=== PATIENT | male | born 1960 | race Caucasian/White ===

== ENCOUNTER 2024-12-03 12:17 | Outpatient (CLI) | payer OTHER, SELFPAY ==
--- OUTSIDE RECORDS SUMMARY | 2024-12-03 11:45 | XMS_ITS | Encounter Summary ---
Author Organization [facility] Address [address] [place] [address] Care Team Providers Care Plug Machine Operator Name Role Phone Bina Gillette Primary Care Provider + Reason for Visit * Reason Comments New Patient Hyperlipidemia * Consultation (Routine) - Closed Specialty Diagnoses / Procedures Referred By Contac t Referred To Contact Cardiology Diagnoses Pure hypercholesterolemia Bina Gillette PA [address] [facility] [address] [place] [address] Phone: tel: fax: Sanjeev Zelaya MD [address] [place] [address] Phone: tel: fax: Referral ID Status Reason Start Date Expiration Date V isits Requested Visits Authorized [id number] Closed Specialty Services Required 04/08/2024 05/08/2025 1 1 Encounter Details Date Type Department Care Team (Latest Contact Info) Description 12/03/2024 11:45 AM CDT Office Visit [facility] Cardiology [address] [place] [address] Sanjeev Zelaya MD [address] [facility] [address] [facility] [address] [place] [address] Coronary artery calcification (Primary Dx); Primary hypertension; Mixed dyslipidemia; Myalgia due to statin Social History Tobacco Use Types Packs/Day Years Used Date Smoking Tobacco: Never Smokeless Tobacco: Never Alcohol Use Standard Drinks/Week Comments Yes 1 (1 standard drink = 0.6 oz pur e alcohol) PHQ-2 Answer Date Recorded PHQ-2 Total Score (If total score is 3 or more points, staff should administer the PHQ-9) 0 10/17/2024 PHQ-9 Answer Date Recorded PHQ-9 Total Score 1 10/07/2024 AUDIT-C Answer Date Recorded Q1: How often do you have a drink containing alc ohol? 2-4 times a month 10/17/2024 Q2: How many drinks containi ng alcohol do you have on a typical day when you are drinking? 1 or 2 10/17/2024 Q3: How often do you have si x or more drinks on one occasion? 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 Not on file Not on file documented as of this encounter Last Filed Vital Signs Vital Sign Reading Time Taken Comments Blood Pressure 132/84 12/03/2024 11:29 AM CDT Pulse 96 12/03/2024 11:29 AM CDT Temperature - - Respiratory Rate - - Oxygen Saturation 97% 12/03/2024 11:29 AM CDT Inhaled Oxygen Concentration - - Weight 83.5 kg (184 lb) 12/03/2024 11:29 AM CDT Height 175 cm (5' 8.9) 12/03/2024 11:29 AM CDT Body Mass Index 27.25 12/03/2024 11:29 AM CDT documented in this encounter Ordered Prescriptions Prescription Sig Dispense Quantity Refills Last Filled Start Date End Date rosuvastatin (CRESTOR) 10 mg tablet Take 1 tablet (10 mg total) by mouth nightly 90 tablet 6 12/03/2024 documented in this encounter Plan of Treatment Scheduled Orders Name Type Priority Associated Diagnoses Orde r Schedule Lipoprotein a (LPa) Lab Routine Coronary artery calcification Expected: 12/06/2024, Expires: 12/03/2025 CRP (cardiac risk) Lab Routine Coronary artery calcification Expected: 12/06/2024, Expires: 12/03/2025 Electrocardiogram Report ECG Routine Coronary artery calcification Ordered: 12/03/2024 documented as of this encounter Visit Diagnoses Diagnosis Coronary artery calcification- Primary Primary hypertension Unspecified essential hypertension Mixed dyslipidemia Myalgia due to statin documented in this encounter Orders Outpatient Referral Count Last Ordered Date Fir st Ordered Date AMB REFERRAL TO CARDIOLOGY 1 12/03/2024 documented in this encounter Care Teams Plug Machine Operator Relationship Specialty Start Date End Date Bina Gillette PA [address] [address] PCP - General Family Medicine 04/08/24 documented as of this encounter
--- OUTSIDE RECORDS SUMMARY | 2024-12-03 12:26 | XMS_ITS | Clinical Summary ---
Author Organization [facility] [place] Address [address] [place] [address] Care Team Providers Care Dispensary Technician Name Role Phone Bina Gillette Primary Care Provider + Allergies Active Allergy Reactions Criticality Noted Date Comments Amoxicillin Rash Medium 03/06/2018 Atorvastatin Muscle pain Medium 05/12/2024 Medications lansoprazole (PREVACID) 30 mg capsule Take 1 capsule (30 mg total) by mouth daily 06/29/2015 Active losartan-hydroc hlorothiazide (HYZAAR) 100-25 mg per tablet Take 1 tablet by mouth daily 06/07/2020 Active multivitamin with minerals tablet Take 1 tablet by mouth daily Active rosuvastatin (CRESTOR) 10 mg tablet Take 1 tablet (10 mg total) by mouth nightly 90 tablet 6 12/03/2024 Active Active Problems Problem Noted Date Diagnosed Date Pure hypercholesterolemia 01/17/2024 Assessment & Plan (10/07/2024 8:08 AM CDT): Hypercholesterolemia with borderline cholesterol levels. ASCVD risk approx 7% over ten years. Previous statin therapy caused significant side effects. Statin therapy deferred until cardiology consultation due to side effects and borderline risk. - Defer statin therapy until cardiology consultation. - Await cardiology input on cholesterol management and potential statin alternatives. - Undergo a heart CT scan to assess cardiovascular risk - scheduled at [facility]. Pt will message me once completed for review Lumbar facet arthropathy 05/15/2023 Esophageal stricture 03/09/2023 Ulcerative esophagitis 03/09/2023 Chronic bilateral low back pain without sciatica 03/08/2023 Assessment & Plan (10/07/2024 8:08 AM CDT): Chronic, improved following RFA by pain management Considering PRP injections for hip pain Right carpal tunnel syndrome 08/28/2018 Psoriasis 02/27/2017 Overview (04/08/2024): Transitioned From: Rash Herniated lumbar intervertebral disc 07/26/2015 Carpal tunnel syndrome 08/12/2014 Esophageal reflux 11/23/2011 Assessment & Plan (10/17/2024 7:34 AM CDT): Chronic, exacerbated Chronic GERD managed with Prevacid. - Continue current Prevacid regimen. Assessment & Plan (10/07/2024 8:08 AM CDT): Chronic, stable condition. Continue current medication regimen: Prevacid Primary hypertension 11/23/2011 Assessment & Plan (10/07/2024 8:08 AM CDT): Chronic, stable condition. Continue current medication regimen: Losartan-HCTZ Assessment & Plan (04/08/2024 8:29 AM DIRECTOR CONTENT MARKETING): Chronic, stable condition. Continue current medication regimen: losartan-HCTZ Encounters Date Type Department Care Team Description 12/03/2024 11:45 AM CDT Office Visit [facility] Cardiology [address] [facility] [address] [place] [address] Sanjeev Zelaya MD Coronary artery calcification (Primary Dx); Primary hypertension; Mixed dyslipidemia; Myalgia due to statin 10/17/2024 7:00 AM CDT Office Visit [facility] Medical [facility] Family Medicine [address] [address] Mari Rosa NP Abdominal pain (Primary Dx); Gastroesophageal reflux disease without esophagitis 10/16/2024 Patient Self-Triage [facility] [address] [place] [id number] Mychart, Generic Provider 10/07/2024 7:30 AM CDT Office Visit [facility] Family Medicine [address] [address] Bina Gillette PA Physical exam, annual (Primary Dx); Pure hypercholesterolemia; Primary hypertension; Gastroesophageal reflux disease without esophagitis; Chronic bilateral low back pain without sciatica from Last 3 Months Immunizations Immunization Administration Dates Next Due Influenza, Quadrivalent, Krystina l Culture-based MDCK, Antibiotic Free, Intramuscular 02/04/2022 Influenza, Quadrivalent, Krystina l Culture-based MDCK, Preservative Free, Antibiotic Free, Intramuscular 01/09/2023 Influenza, Quadrivalent, Spl it, Preservative Free, Intramuscular 12/28/2020,12/16/2019,03/18/2019,12/11,02/27/2017,11/17/2014 Influenza, Trivalent, Cell Culture-based MDCK, Preservative Free, Antibiotic Free, Intramuscular 01/04/2024 Influenza, Unspecified 01/09/2023,02/04/2022 Tdap 01/19/2024,02/27/2017 ZOSTER Recombinant 06/27/2023,03/15/2023 Surgical History Surgery Date Site/Laterality Comments BACK SURGERY 03/05/2016 - 03/04/2017 lumbar surgery no hardware present KNEE SURGERY Bilateral menicus SA surgery early FOOT FRACTURE SURGERY 03/05/2004 - 03/04/2005 Right small screw present foot SINUS SURGERY 03/05/2004 - 03/04/2005 septoplasty COLONOSCOPY 03/05/2017 - 03/04/2018 normal HAND SURGERY 08/04/[address] (LOCAL) HERNIA REPAIR 1982 SPINE SURGERY 2016 Medical History Medical History Date Comments Gastric reflux Hypertension History of ear, nose, and th roat (ENT) surgery PONV (postoperative nausea and vomiting) Allergic rhinitis not on any med ications GERD (gastroesophageal reflux disease) controlled with medication Carpal tunnel syndrome LEFT Psoriasis SEE MED LIST PRN OINTMENT AND CREAMS Tooth missing #14 STATES PATIE NT Hyperlipidemia Family History Medical History Relation Name Comments Heart disease Father Jason Stroke Father Jason Heart disease Mother Fiona Relation Name Status Comments Father Jason Alive Mother Fiona Social History Tobacco Use Types Packs/Day Years [...] on file Legal Sex Male 9:03 PM DIRECTOR CONTENT MARKETING Gender Identity Male 08/12/2020 9:03 AM CDT Sexual Orientation Straight 08/12/2020 9: 03 AM CDT 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 Not on file Not on file Obstetrics History Last Filed Vital Signs Vital Sign Reading Time Taken Comments Blood Pressure 132/84 12/03/2024 11:29 AM CDT Pulse 96 12/03/2024 11:29 AM CDT Temperature 36.3 C (97.3 F) 10/17/2024 6:50 AM CDT Respiratory Rate 18 10/17/2024 6:50 AM CDT Oxygen Saturation 97% 12/03/2024 11:29 AM CDT Inhaled Oxygen Concentration - - Weight 83.5 kg (184 lb) 12/03/2024 11:29 AM CDT Height 175 cm (5' 8.9) 12/03/2024 11:29 AM CDT Body Mass Index 27.25 12/03/2024 11:29 AM CDT Plan of Treatment Health Maintenance Due Date Last Done Comments Hepatitis C Screening 1962 Hepatitis B Screening 1980 Covid-19 Vaccine ( season) 2024 11/16/2021, 02/02/2021, 06/29/2020, Additional history exists Influenza Vaccine (#1) 2024 , 01/09/2023, 01/09/2023, Additional history exists Regular Well Visit/Exam 18-64 10/07/2025 10/07/2024 Depression Screening 10/17/2025 10/17/2024, 10/07/2024, 10/07/2024, Additional history exists Prostate Cancer Screening-PSA 04/14/2026 04/14/2024 Colon Cancer Screening-Colonoscopy 05/18/2027 05/17/2017 DTaP/Tdap/Td Vaccine (3 - Td or Tdap) 01/18/2034 01/19/2024, 02/27/2017 Colon Cancer Screening-CT Colonography Discontinued 05/17/2017 Colon Cancer Screening-DNA Stool Discontinued 05/17/2017 Colon Cancer Screening-FIT Discontinued 05/17/2017 Colon Cancer Screening-Sigmoidoscopy Discontinued 05/17/2017 Zoster Vaccine Completed 06/27/2023, 03/15/2023 Pneumococcal vaccine <65 Aged Out No longer eligible based on patient's age to complete this topic Medical Devices Implanted Type Area Manager Of Transportation Device Identifier Shelf Expiration Date Model / Serial / Lot Screw Implanted:Qty: 2 Screw Right: Foot Procedures Procedure Name Priority Date/Time Associated Diagnosis Comments POCT URINALYSIS DIPSTICK Routine 10/17/2024 7:14 AM CDT Abdominal pain PSA SCREEN Routine 04/14/2024 7:20 AM DIRECTOR CONTENT MARKETING Screening PSA (prostate specific antigen) HM COLONOSCOPY Routine 05/17/2017 from Last 3 Months or Most Recently Relevant to Health Maintenance Results * POCT urinalysis dipstick (10/17/2024 7:14 AM CDT) Color, Urine, POC Yellow Clarity, ur, POC Clear Clear Glucose, ur, POC Negative Negative Bilirubin, ur, POC Negative Negative Ketones, ur, POC Negative Negative Specific [place], POC 1.015 1.003 - 1.030 Blood, ur, POC Negative Negative pH, ur, POC 6.5 5.0 - 8.0 Protein, ur, POC Negative Negative Urobilinogen, urine, POC 0.2 0.2 - 1.0 mg/dL Nitrite, ur, POC Negative Negative Leukocytes, ur, POC Negative Negative Lot Number [id number] Urine 10/17/2024 7:14 AM CDT Mari Rosa NP POINT OF CARE TEST ORDERABLE S Final Result * PSA screen (04/14/2024 7:20 AM DIRECTOR CONTENT MARKETING) PSA 1.19 < OR = 4.00 ng/mL [facility] Comment: The total PSA value from this assay system is standardized against the WHO standard. The test result will be approximately 20% lower when compared to the equimolar-standardized total PSA (Jabier Masha). Comparison of serial PSA results should be interpreted with this fact in mind. This test was performed using the Siemens chemiluminescent method. Values obtained from different assay methods cannot be used interchangeably. PSA levels, regardless of value, should not be interpreted as absolute evidence of the presence or absence of disease. Blood 04/14/2024 7:20 AM DIRECTOR CONTENT MARKETING 04/14/2024 7:21 AM DIRECTOR CONTENT MARKETING Narrative [facility] - 04/15/2024 6:40 AM DIRECTOR CONTENT MARKETING FASTING:YES FASTING: YES [facility] BLOOD ORDERABLES Fin al Result [facility] [address] [place] [address] * COLONOSCOPY (05/17/2017) Historical Provider HEALTH MAINTENANCE Final Result from Last 3 Months or Most Recently Relevant to Health Maintenance Insurance [facility] H[facility]/PPO Address: [address] [address] [place] [address] Advance Directives For more information, please contact: [phone] Documents on File Type Date Recorded Patient Asphalt Paving Superintendent Expl anation ADVANCE DIRECTIVE 06/29/2015 12:00 AM MIRTA R OF CURRICULUM COORDINATOR FINANCIAL/MEDICAL Care Teams Dispensary Technician Relationship Specialty Start Date End Date Bina Gillette PA [address] [place] [address] PCP - General Family Medicine 04/08/24
--- OUTSIDE RECORDS SUMMARY | 2024-12-03 12:26 | XMS_ITS | Encounter Summary ---
Author Organization [facility] Address [facility] [place] [address] Care Team Providers Care Field Artillery Fire Control Man Name Role Phone Lyao Bain MD Primary Care Provider [phone] Rubi Gilbert MD Primary Care Provider [phone] Encounter Details Date Type Department Care Team (Late st Contact Info) Description 03/20/2019 Hitwise Message Enc [facility] Family Medicine [facility] [address] [place] [phone] Layo Bain MD [address] [place] [address] Test Results Social History Tobacco Use Types Packs/Day Years Used Date Smoking Tobacco: Never Smokeless Tobacco: Never Alcohol Use Standard Drinks/Week Comments Yes 0 (1 standard drink = 0.6 oz pur e alcohol) AUDIT-C Answer Date Recorded Frequency of Alcohol Consumption Monthly or less 03/06/2018 Average Number of Drinks Not on file 019 Frequency of Binge Drinking Not on file 04/2018 Education Answer Date Recorded What is the highest level of school you have completed or the highest degree you have received? Associate degree: academic program 03/06/2018 Sex and Gender Information Value Date Recorded Sex Assigned at Not on file Legal Sex Male 9:56 PM CDT Gender Identity Not on file Sexual Orientation Not on file documented as of this encounter Progress Notes * Layo Bain MD - 03/20/2019 10:09 PM CST The hydrochlorothiazide was not prescribed to decrease your sodium. It will have a minimal impact on the serum levels of sodium. I prescribed it to reduce your blood pressure because your blood pressure was borderline high. This should bring your blood pressure into more normal/healthy range. Although the medication works by modifying sodium concentration in the kidneys it does not impact the levels in the blood all that much. As for the anion gap, this is a very unimportant and inconsequentiallab test for our purposes here. It is mainly used intensive care settings when a person is very sick or when they are on a ventilator. CTOR OF SALES AND MARKETING documented in this encounter Plan of Treatment Not on file documented as of this encounter Visit Diagnoses Not on filedocumented in this encounter Additional Health Concerns Infection Onset Date Last Indicated Resolved Time COVID-19 Rule Out 08/30/2021 08/30/2021 08/31/2021 2:39 PM CDT COVID-19 Confirmed 08/30/2021 08/30/2021 12:32 AM CDT documented as of this encounter Care Teams Field Artillery Fire Control Man Relationship Specialty Start Date End Date Layo Bain MD PCP - General 12/19/13 12/17/23 Rubi Gilbert MD [address] [place] [address] PCP - General FAMILY PRACTICE 01/03/24 documented as of this encounter
--- OUTSIDE RECORDS SUMMARY | 2024-12-03 12:26 | XMS_ITS | Clinical Summary ---
Author Organization [facility] Address [facility] [place] [address] Care Team Providers Care Merchant Banker Name Role Phone Rubi Gilbert MD Primary Care Provider Allergies Active Allergy Reactions Criticality Noted Date Comments Amoxicillin Rash Low 03/06/2018 Medications clobetasol (TEMOVATE) 0.05 % ointment APPLY TO THE TRUNK/EXTEN GRISELDA 2 TIMES A DAY FOR 7 TO 14 DAYS, THEN USE NEEDED 03/22/19 24 Active tacrolimus (PROTOPIC) 0.1 % ointment APPLY TO TRUNK/EXTEN GRISELDA 2 TIMES A DAY NEEDED 03/22/19 24 Active celecoxib (CELEBREX) 200 MG capsuleIndications:Chron ic bilateral low back pain without sciatica Take 1 capsule (200 mg total) by mouth 2 (two) times daily. 180 capsule 1 01/03/20 24 Active atorvastatin (LIPITOR) 20 MG tabletIndications:Pure hypercholesterolemia Take 1 tablet (20 mg total) by mouth nightly at bedtime. 90 tablet 1 01/17/20 24 Active Active Problems Problem Noted Date Diagnosed Date Stage 2 chronic kidney disease 01/17/2024 Pure hypercholesterolemia 01/17/2024 Lumbar facet arthropathy 05/15/2023 SI joint arthritis 04/04/2023 Esophageal stricture 03/09/2023 Ulcerative esophagitis 03/09/2023 Chronic bilateral low back pain without sciatica 03/08/2023 Psoriasis 02/27/2017 Overview (03/06/2018): Transitioned From: Rash Esophageal reflux 11/23/2011 Primary hypertension 11/23/2011 Resolved Problems Problem Noted Date Diagnosed Date Resolved Date External thrombosed hemorrhoids 12/13/2017 04/23/2023 Right carpal tunnel syndrome 08/12/2014 04/23/2023 Encounter for preventive health examination 11/23/2011 11/14/2019 Encounters Date Type Department Care Team Description 10/16/2024 12:11 PM CDT - 10/16/2024 11:59 PM CDT Hospital Encounter [facility] [address] [place] [address] Oc Walton MD Discharge Disposition: Home or Self Care (Routine Discharge) 10/16/2024 Travel from Last 3 Months Immunizations Immunization Administration Dates Next Due FLUCELVAX (ccIIV3, TRIVALENT, 0.5mL) 01/04/2024 Fluzone 6 Months+ Quad (0.5 mL Prefilled Syringe) 12/28/2020,12/16/2019,03/18/2019 Influenza Adult (Generic) 01/09/2023,05/2021,12/11/2017,2016,11/17/2014 MODERNA COVID-19 (12+) MRNA, LNP-S, PF, 100 MCG/ 0.5 ML DOSE 06/29/2020,06/01/2020 MODERNA COVID-19 (MEDICAL LAB TECHNICIAN ANTHONY DAVID), MRNA, LNP-S, PF, 50 MCG/ 0.25 ML DOSE 02/02/2021 Shingrix 06/27/2023,03/15/2023 Tdap (Boostrix) 01/19/2024 Tdap (Generic) 02/27/2017 Family History Medical History Relation Comments Heart Disease Mother Relation Status Comments Mother Social History Tobacco Use Types Packs/Day Years Used Date Smoking Tobacco: Never Smokeless Tobacco: Never Tobacco Cessation:Counseling Given: Yes Alcohol Use Standard Drinks/Week Comments Yes 6.7 (1 standard drink = 0.6 oz p ure alcohol) AUDIT-C Answer Date Recorded Frequency of Alcohol Consumption Monthly or less 03/06/2018 Average Number of Drinks Not on file 019 Frequency of Binge Drinking Not on file 04/2018 PHQ-2 Answer Date Recorded Patient Health Questionnaire-2 Score 0 01/17/2024 Education Answer Date Recorded What is the highest level of school you have completed or the highest degree you have received? Associate degree: academic program 03/06/2018 Sex and Gender Information Value Date Recorded Sex Assigned at Not on file Legal Sex Male 9:56 PM CDT Gender Identity Not on file Sexual Orientation Not on file Last Filed Vital Signs Vital Sign Reading Time Taken Comments Blood Pressure 135/80 01/19/2024 9:04 AM INSPECTOR TESTER SORTER Pulse 81 01/19/2024 9:04 AM INSPECTOR TESTER SORTER Temperature 36.7 C (98.1 F) 01/19/2024 9:04 AM INSPECTOR TESTER SORTER Respiratory Rate 18 01/19/2024 9:04 AM INSPECTOR TESTER SORTER Oxygen Saturation 100% 01/19/2024 9:04 AM INSPECTOR TESTER SORTER Inhaled Oxygen Concentration - - Weight 83.9 kg (185 lb) 01/19/2024 9:04 AM INSPECTOR TESTER SORTER Height 177.8 cm (5' 10) 01/19/2024 9:04 AM INSPECTOR TESTER SORTER Body Mass Index 26.54 01/19/2024 9:04 AM INSPECTOR TESTER SORTER Plan of Treatment Health Maintenance Due Date Last Done Comments Pneumococcal Vaccine: 50+ Years (1 of 2 - PCV) 1981 RSV Immunization or 60+ Years (1 - Risk 60-74 years 1-dose series) 2022 PHQ-2 (Physician [place]) 03/05/2024 01/17/2024 COVID-19 Vaccine (2024- season) 2024 11/16/2021, 02/02/2021, 06/29/2020, Additional history exists Annual Physical 01/02/2025 01/03/2024, 06/2023, 11/15/2021, Additional history exists Colorectal Cancer Screening Colonoscopy (10 Years) 05/18/2027 05/17/2017 DTaP, Tdap and Td Vaccines (3 - Td or Tdap) 01/18/2034 01/19/2024, 02/27/2017 Hepatitis C Completed 03/18/2019 Zoster Vaccines Completed 06/27/2023, 03/15/2023 Meningococcal B Vaccine Aged Out No l onger eligible based on patient's age to complete this topic Meningococcal Vaccine Aged Out No fortino renzo eligible based on patient's age to complete this topic RSV Immunizations Under 20 Months Aged Out No longer eligible based on patient's age to complete this topic Medical Devices Implanted Type Area Vp Scientific Affairs Device Identifier Shelf Expiration Date Model / Serial / Lot Screw Screw Right: Foot Procedures Procedure Name Priority Date/Time Associated Diagnosis Comments CT HEART SCREEN CALCIUM SCORE PROMO Routine 10/16/2024 12:27 PM CDT Screening for heart disease HEPATITIS C ANTIBODY Routine 03/18/2019 9:00 AM INSPECTOR TESTER SORTER Need for hepatitis C screening test COLONOSCOPY Routine 05/17/2017 12:00 AM CDT from Last 3 Months or Most Recently Relevant to Health Maintenance Results * CT HEART SCREEN CALCIUM SCORE PROMO (10/16/2024 12:27 PM CDT) Anatomical Region Laterality Modality Chest Computed Tomogra phy 10/20/2024 7:30 AM CDT Impressions 10/20/2024 7:31 AM CDT =====IMPRESSION:===== Total Score: 79.6 Mild plaque, moderate risk, low likelihood of significant stenosis (<50%). Ordered By: OC WALTON Interpreted By: Freddie Dior MD, 10/20/2024 7:30 AM Narrative 10/20/2024 7:31 AM CDT [address] [address] EXAMINATION: Multislice Helical CT Coronary Calcium Scoring REASON FOR EXAM: Screening for heart disease COMPARISON: None TECHNIQUE: Multislice helical CT images of the proximal coronary arteries with a computer generated calcification score. A dose lowering technique was used for this procedure, which may include, but is not limited to, dose reduction technique, automated exposure control, iterative reconstruction, ALARA (As Low As Reasonably Achievable), or Image Gently techniques. Results: Left main: 0 LAD: 79.6 Circumflex: 0 Right coronary: 0 Total Score: 79.6 Comments: There is no mediastinal adenopathy, and there are no pulmonary nodules in the visualized portions of the chest. Calcium score guidelines: Total Score* Calcium Plaque [place] *Risk *Probability of significant CAD 0 No Plaque Very Low Very unlikely 1-10 Minimal Plaque Low Unlikely 11-100 Mild Plaque Moderate Low likelihood of significant stenosis <50% 101-400 Moderate Plaque Moderately High Moderate likelihood of significant stenosis (>50%) Over 400 Extensive Plaque High High likelihood of significant stenosis (>50%) The amount of coronary artery calcification correlates with the severity of coronary atherosclerosis and the probability of future significant event. Calcification is not site specific for stenosis and does not identify non-calcified atherosclerotic plaque, but rather indicates the extent of atherosclerosis in the coronary arteries overall. The score may be used as an indicator for risk factor modification or additional cardiac testing. Significant change in calcium score over time may be indicative of subsequent disease development or useful as a benchmark to assess preventative programs. Procedure Note Freddie Dior MD - 10/20/2024 [place] [id number] EXAMINATION: Multislice Helical CT Coronary Calcium Scoring REASON FOR EXAM: Screening for heart disease COMPARISON: None TECHNIQUE: Multislice helical CT images of the proximal coronary arterieswith a computer generated calcification score. A dose lowering techniquewas used for this procedure, which may include, but is not limited to,dose reduction technique, automated exposure control, iterativereconstruction, ALARA (As Low As Reasonably Achievable), or Image Gentlytechniques. Results: Left main: 0 LAD: 79.6 Circumflex: 0 Right coronary: 0 Total Score: 79.6 Comments: There is no mediastinal adenopathy, and there are no pulmonarynodules in the visualized portions of the chest. Calcium score guidelines: Total Score* Calcium Plaque [place] *Risk *Probability ofsignificant CAD 0 No Plaque Very LowVery unlikely 1-10 Minimal Plaque LowUnlikely 11-100 Mild Plaque ModerateLow likelihood of significant stenosis <50% 101-400 Moderate Plaque Moderately HighModerate likelihood of significant stenosis (>50%) Over 400 Extensive Plaque HighHigh likelihood of significant stenosis (>50%) The amount of coronary artery calcification correlates with the severityof coronary atherosclerosis and the probability of future significantevent. Calcification is not site specific for stenosis and does notidentify non-calcified atherosclerotic plaque, but rather indicates theextent of atherosclerosis in the coronary arteries overall. The score may be used as an indicator for risk factor modification oradditional cardiac testing. Significant change in calcium score over timemay be indicative of subsequent disease development or useful as abenchmark to assess preventative programs. =====IMPRESSION:===== Total Score: 79.6 Mild plaque, moderate risk, low likelihood ofsignificant stenosis (<50%). Ordered By: OC WALTON Interpreted By: Freddie Dior MD, 10/20/2024 7:30 AM us Oc Walton MD CT Final Res ult * HEPATITIS C ANTIBODY (03/18/2019 9:00 AM INSPECTOR TESTER SORTER) HEPATITIS C AB NON-REACTI VE NON-REACTI VE 03/18/2019 9:06 PM INSPECTOR TESTER SORTER [facility] 03/18/2019 9:00 AM INSPECTOR TESTER SORTER us Layo Bain MD LABORATORY Final Res ult [facility] [address] [place] [address], [place] [phone] * Colonoscopy (05/17/2017 12:00 AM CDT) 05/17/2017 05/17/2017 Narrative [facility] TO EPIC CONVERSION - 05/17/2017 12:00 AM CDT Documented hx of procedure Procedure Note Lacey Gagnon MD - 01/06/2018 Documented hx of procedure us Lacey Easton Md, MD GI PROCEDURE ORDERABLES Final Result [facility] TO EPIC CONVERSION from Last 3 Months or Most Recently Relevant to Health Maintenance Insurance [employer] Care Teams Merchant Banker Relationship Specialty Start Date End Date Rubi Gilbert MD [address] [place] [address] PCP - General FAMILY PRACTICE 01/03/24
--- OUTSIDE RECORDS SUMMARY | 2024-12-03 12:26 | XMS_ITS | Encounter Summary ---
Author Organization [facility] Address [facility] [place] [address] Care Team Providers Care Chief Recordist Name Role Phone Layo Bain MD Primary Care Provider [phone] Rubi Gilbert MD Primary Care Provider [phone] Encounter Details Date Type Department Care Team (Late st Contact Info) Description 11/26/2023 fanatixhart Message Enc [facility] [place] [address] [id number] Sandra Mosqueda MD Three [facility] [address] [place] [address] Procedure still On ? Social History Tobacco Use Types Packs/Day Years Used Date Smoking Tobacco: Never Smokeless Tobacco: Never Alcohol Use Standard Drinks/Week Comments Yes 6.7 [...] on file documented as of this encounter Plan of Treatment Not on file documented as of this encounter Visit Diagnoses Not on filedocumented in this encounter Care Teams Chief Recordist Relationship Specialty Start Date End Date Layo Bain MD PCP - General 12/19/13 12/17/23 Rubi Gilbert MD [address] [place] [address] PCP - General FAMILY PRACTICE 01/03/24 documented as of this encounter
--- OUTSIDE RECORDS SUMMARY | 2024-12-03 12:26 | XMS_ITS | Encounter Summary ---
Author Organization [facility] Address [address] [place] [address] Care Team Providers Care Machine Farmworker Name Role Phone Rubi Gilbert MD Primary Care Provider [phone] Encounter Details Date Type Department Care Team (Late st Contact Info) Description 12/26/[address] [facility] [place] [address] [id number] Sandra Mosqueda MD Three [facility] [address] [place] [address] RFA Procedures Insurance cancelled 2x's Social History Tobacco Use Types Packs/Day Years [...] on filedocumented in this encounter Care Teams Machine Farmworker Relationship Specialty Start Date End Date Rubi Gilbert MD [address] [place] [address] PCP - General FAMILY PRACTICE 01/03/24 documented as of this encounter
--- OUTSIDE RECORDS SUMMARY | 2024-12-03 12:26 | XMS_ITS | Encounter Summary ---
Author Organization [facility] Address [address] [place] [address] Care Team Providers Care Ware Finisher Name Role Phone Layo Bain MD Primary Care Provider [phone] Rubi Gilbert MD Primary Care Provider [phone] Encounter Details Date Type Department Care Team (Late st Contact Info) Description 06/23/2023 [email or web address] Message Enc [facility] Family Medicine [facility] [address] [place] [address] Layo Bain MD [address] [place] [address] Test results Social History Tobacco Use Types Packs/Day Years [...] on filedocumented in this encounter Care Teams Ware Finisher Relationship Specialty Start Date End Date Layo Bain MD PCP - General 12/19/13 12/17/23 Rubi Gilbert MD [address] [place] [address] PCP - General FAMILY PRACTICE 01/03/24 documented as of this encounter
--- OUTSIDE RECORDS SUMMARY | 2024-12-03 12:26 | XMS_ITS | Encounter Summary ---
Author Organization [facility] Address [address] [place] [address] Care Team Providers Care Net Mvc Developer Name Role Phone Rubi Gilbert MD Primary Care Provider [phone] Encounter Details Date Type Department Care Team (Late st Contact Info) Description 02/13/2024 [email or web address] Message Enc [facility] Medical [facility] Family Medicine [facility] [address] [place] [address] Rubi Gilbert MD [address] [place] [address] Stage 2 Kidney Disease ??? Social History Tobacco Use Types Packs/Day Years [...] on filedocumented in this encounter Care Teams Net Mvc Developer Relationship Specialty Start Date End Date Rubi Gilbert MD [address] [place] [address] PCP - General FAMILY PRACTICE 01/03/24 documented as of this encounter
--- OUTSIDE RECORDS SUMMARY | 2024-12-03 12:26 | XMS_ITS | Encounter Summary ---
Author Organization [facility] Address [facility] [place] [address] Care Team Providers Care Compensation Administrator Name Role Phone Layo Bain MD Primary Care Provider [phone] Rubi Gilbert MD Primary Care Provider [phone] Encounter Details Date Type Department Care Team (Late st Contact Info) Description 09/19/2023 Prep for Procedure [facility] [address] [place], [place] [id number] Sandra Mosqueda MD Three [facility] [address] [place] [address] Social History Tobacco Use Types Packs/Day Years [...] on filedocumented in this encounter Care Teams Compensation Administrator Relationship Specialty Start Date End Date Layo Bain MD PCP - General 12/19/13 12/17/23 Rubi Gilbert MD [address] [place] [address] PCP - General FAMILY PRACTICE 01/03/24 documented as of this encounter
--- OUTSIDE RECORDS SUMMARY | 2024-12-03 12:26 | XMS_ITS | Encounter Summary ---
Author Organization [facility] Address [address] [place] [address] Care Team Providers Care Bike Mechanic Name Role Phone Layo Bain MD Primary Care Provider [phone] Rubi Gilbert MD Primary Care Provider [phone] Encounter Details Date Type Department Care Team (Late st Contact Info) Description 06/02/2021 Fileboard Message Enc [facility] Family Medicine [facility] [address] [place] [address] Layo Bain MD [address] [place] [address] Medication renewal Social History Tobacco Use Types Packs/Day Years [...] on file Sexual Orientation Not on file COVID-19 Exposure Response Date Recorded In the last 10 days, have yo u been in contact with someone who was confirmed or suspected to have Coronavirus/COVID-19? No / Unsure 05/10/2021 8:30 AM EDITORIAL PROJECT MANAGER documented as of this encounter Plan of Treatment Not on file documented as of this encounter Visit Diagnoses Not on filedocumented in this encounter Additional Health Concerns Infection Onset Date Last Indicated Resolved Time COVID-19 Rule Out 08/30/2021 08/30/2021 08/31/2021 2:39 PM CDT COVID-19 Confirmed 08/30/2021 08/30/2021 12:32 AM CDT documented as of this encounter Care Teams Bike Mechanic Relationship Specialty Start Date End Date Layo Bain MD PCP - General 12/19/13 12/17/23 Rubi Gilbert MD [address] [place] [address] PCP - General FAMILY PRACTICE 01/03/24 documented as of this encounter
--- OUTSIDE RECORDS SUMMARY | 2024-12-03 12:26 | XMS_ITS | Encounter Summary ---
Author Organization [facility] Address [address] [place] [address] Care Team Providers Care Events Administrative Assistant Name Role Phone Rubi Gilbert MD Primary Care Provider [phone] Encounter Details Date Type Department Care Team (Late st Contact Info) Description 12/26/2023 Reppifyt Message Enc [facility] Medical Group Family Medicine [facility] [address] [place] [address] Rubi Gilbert MD [address] [place] [address] Shingles Shot 2 Social History Tobacco Use Types Packs/Day Years [...] on filedocumented in this encounter Care Teams Events Administrative Assistant Relationship Specialty Start Date End Date Rubi Gilbert MD [address] [place] [address] PCP - General FAMILY PRACTICE 01/03/24 documented as of this encounter
--- OUTSIDE RECORDS SUMMARY | 2024-12-03 12:26 | XMS_ITS | Encounter Summary ---
Author Organization [facility] Address [address] [place] [address] Care Team Providers Care Podiatric Surgeon Name Role Phone Layo Bain MD Primary Care Provider [phone] Rubi Gilbert MD Primary Care Provider [phone] Encounter Details Date Type Department Care Team (Late st Contact Info) Description 04/22/2023 Guanghetang Message Enc [facility] Medical Group Family Medicine [facility] [address] [place] [address] Layo Bain MD [address] [place] [address] Sore throat Social History Tobacco Use Types Packs/Day Years [...] on filedocumented in this encounter Care Teams Podiatric Surgeon Relationship Specialty Start Date End Date Layo Bain MD PCP - General 12/19/13 12/17/23 Rubi Gilbert MD [address] [place] [address] PCP - General FAMILY PRACTICE 01/03/24 documented as of this encounter
--- OUTSIDE RECORDS SUMMARY | 2024-12-03 12:26 | XMS_ITS | Encounter Summary ---
Author Organization [facility] Address [facility] [place] [address] Care Team Providers Care Lease Administrator Name Role Phone Layo Bain MD Primary Care Provider [phone] Rubi Gilbert MD Primary Care Provider [phone] Encounter Details Date Type Department Care Team (Late st Contact Info) Description 07/13/2023 Ingenicot Message Enc [facility] [place] [address] [id number] Sandra Mosqueda MD Three [facility] [address] [place] [address] Insurance approval Social History Tobacco Use Types Packs/Day Years [...] on filedocumented in this encounter Care Teams Lease Administrator Relationship Specialty Start Date End Date Layo Bain MD PCP - General 12/19/13 12/17/23 Rubi Gilbert MD [address] [place] [address] PCP - General FAMILY PRACTICE 01/03/24 documented as of this encounter
--- OUTSIDE RECORDS SUMMARY | 2024-12-03 12:26 | XMS_ITS | Encounter Summary ---
Author Organization [facility] Address [address] [place] [address] Care Team Providers Care Robotic Weld Technician Name Role Phone Rubi Gilbert MD Primary Care Provider [phone] Encounter Details Date Type Department Care Team (Late st Contact Info) Description 01/03/2024 AirWalk Communicationst Message Enc [facility] Medical Group Family Medicine [facility] [address] [place] [address] Rubi Gilbert MD [address] [place] [address] Losartan Refill Social History Tobacco Use Types Packs/Day Years Used Date Smoking Tobacco: Never Smokeless Tobacco: Never Alcohol Use Standard Drinks/Week Comments Yes 6.7 (1 standard drink = 0.6 oz p ure alcohol) AUDIT-C Answer Date Recorded Frequency of Alcohol Consumption Monthly or less 03/06/2018 Average Number of Drinks Not on file Frequency of Binge Drinking Not on file 04/2018 PHQ-2 Answer Date Recorded Patient Health Questionnaire-2 Score 0 01/03/2024 Education Answer Date Recorded What is the highest level of school you have completed or the highest degree you have received? Associate degree: academic program 03/06/2018 Sex and Gender Information Value Date Recorded Sex Assigned at Not on file Legal Sex Male 9:56 PM CDT Gender Identity Not on file Sexual Orientation Not on file documented as of this encounter Functional Status * Over the past 2 weeks, how often have you been bothered by any of the following problems? Question Answer Date of Assessment Author Status Little interest or pleasure in doing things Not at all 01/03/2024 7:17 AM Essence Gould MA Active Feeling down, depressed, or hopeless Not at all 01/03/2024 7:17 AM Jefry Gould MA Active Patient Health Questionnaire-2 Score 0 01/03/2024 7:17 AM Scooter Gould ra, MA Active * If you checked off any problems on this questionnaire so far, Question Answer Date of Assessment Author Status How difficult have these problems made it for you to do your work, take care of things at home, or get along with other people? Not difficult at all 01/03/2024 7:17 AM Essence Gould MA Active documented as of this encounter Plan of Treatment Not on file documented as of this encounter Visit Diagnoses Not on filedocumented in this encounter Care Teams Robotic Weld Technician Relationship Specialty Start Date End Date Rbui Gilbert MD [address] [place] [address] PCP - General FAMILY PRACTICE 01/03/24 documented as of this encounter
--- OUTSIDE RECORDS SUMMARY | 2024-12-03 12:26 | XMS_ITS | Encounter Summary ---
Author Organization [facility] Address formerly [facility] [place] [facility] [place] [address] Care Team Providers Care Utility System Operator Name Role Phone Layo Bain MD Primary Care Provider [phone] Rubi Gilbert MD Primary Care Provider [phone] Encounter Details Date Type Department Care Team (Latest Contact Info) Description 06/28/2023 [employer] Message Enc [facility] [place] [address] [id number] Sandra Mosqueda MD Three [facility] [address] [place] [address] Insurance preauthorization question Social History Tobacco Use Types Packs/Day Years [...] on filedocumented in this encounter Care Teams Utility System Operator Relationship Specialty Start Date End Date Layo Bain MD PCP - General 12/19/13 12/17/23 Rubi Gilbert MD [address] [place] [address] PCP - General FAMILY PRACTICE 01/03/24 documented as of this encounter
--- OUTSIDE RECORDS SUMMARY | 2024-12-03 12:26 | XMS_ITS | Encounter Summary ---
Author Organization [facility] Address [address] [place] [address] Care Team Providers Care Electrical Solderer Name Role Phone Layo Bain MD Primary Care Provider [phone] Rubi Gilbert MD Primary Care Provider [phone] Encounter Details Date Type Department Care Team (Late st Contact Info) Description 06/22/2022 IP Fabrics Message Enc [facility] Medical Group Family Medicine [facility] [address] [place] [address] Layo Bain MD [address] [place] [address] Back Pain Update Social History Tobacco Use Types Packs/Day Years [...] on filedocumented in this encounter Care Teams Electrical Solderer Relationship Specialty Start Date End Date Layo Bain MD PCP - General 12/19/13 12/17/23 Rubi Gilbert MD [address] [place] [address] PCP - General FAMILY PRACTICE 01/03/24 documented as of this encounter
--- OUTSIDE RECORDS SUMMARY | 2024-12-03 12:26 | XMS_ITS | Encounter Summary ---
Author Organization [facility] Address [address] [place] [address] Care Team Providers Care Hat Conditioner Name Role Phone Layo Bain MD Primary Care Provider [phone] Rubi Gilbert MD Primary Care Provider [phone] Encounter Details Date Type Department Care Team (Late st Contact Info) Description 05/10/2022 Begun Message Enc [facility] Medical Group Family Medicine [facility] [address] [place] [address] Layo Bain MD [address] [place] [address] Back X-rays Completed Social History Tobacco Use Types Packs/Day Years [...] suspected to have Coronavirus/COVID-19? No / Unsure 05/10/2022 4:04 PM FRUIT OR NUT FARMWORKER documented as of this encounter Functional Status * Calculated C-SSRS Risk Score (Lifetime/Recent) Answer Date of Assessment Author Status No Risk Indicated 05/10/2022 4:19 PM FRUIT OR NUT FARMWORKER Wilfrid Duran RN Active * [place] Suicide Severity Rating Scale (Screener/Recent Self-Report) Question Answer Date of Assessment Author Status 1. Wish to be (Past 1 Month) No 05/10/2022 4:19 PM FRUIT OR NUT FARMWORKER Shital Duran, RN Acti ve 2. Non-Specific Active Suicidal Thoughts (Past 1 Month) No 05/10/2022 4:19 PM FRUIT OR NUT FARMWORKER Shital Duran, RN Acti ve 6. Suicidal Behavior (Lifetime) No 05/10/2022 4:19 PM Shital Mcgee, RN Acti ve documented as of this encounter Plan of Treatment Not on file documented as of this encounter Visit Diagnoses Not on filedocumented in this encounter Care Teams Hat Conditioner Relationship Specialty Start Date End Date Layo Bain MD PCP - General 12/19/13 12/17/23 Rubi Gilbert MD [address] [place] [address] PCP - General FAMILY PRACTICE 01/03/24 documented as of this encounter
--- OUTSIDE RECORDS SUMMARY | 2024-12-03 12:26 | XMS_ITS | Encounter Summary ---
Author Organization [facility] Address [facility] [place] [address] Care Team Providers Care Shopper Marketing Manager Name Role Phone Layo Bain MD Primary Care Provider [phone] Rubi Gilbert MD Primary Care Provider [phone] Encounter Details Date Type Department Care Team (Late st Contact Info) Description 07/31/2023 Latiohart Message Enc [facility] [place] [address] [phone] Sandra Mosqueda MD Three [facility] [address] [place] [address] A lot of hip pain Social History Tobacco Use Types Packs/Day Years [...] on filedocumented in this encounter Care Teams Shopper Marketing Manager Relationship Specialty Start Date End Date Sensintaffar, [place], MD PCP - General 12/19/13 12/17/23 Rubi Gilbert MD [address] [place] [address] PCP - General FAMILY PRACTICE 01/03/24 documented as of this encounter
--- OUTSIDE RECORDS SUMMARY | 2024-12-03 12:26 | XMS_ITS | Clinical Summary ---
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 Gender Identity Not on file Sexual Orientation Not on file Plan of Treatment Health Maintenance Due Date Last Done Comments COLORECTAL SCREENING 10/13/2007 Colorectal Cancer Screening 10/13/2007 FIT-DNA Q 3 years 10/13/2007 FIT/FOBT Q 1 year 10/13/2007 Flex Sig/CT Colonography Q 5 years 10/13/2007 ZOSTER VACCINE (1 of 2) 2012 INFLUENZA VACCINE (#1) 2024 , 12/16/2019, 03/18/2019 COVID-19 Vaccine ( season) 2024 02/02/2021, 06/29/2020, 06/01/2020 DTAP/TDAP/TD VACCINES (2 - T d or Tdap) 02/27/2027 02/27/2017 RSV VACCINE (60+ or ) (1 - 1-dose 75+ series) 2037 Insurance [facility]
--- OUTSIDE RECORDS SUMMARY | 2024-12-03 12:26 | XMS_ITS | Encounter Summary ---
Author Organization [facility] Address [address] [place] [address] Care Team Providers Care Neurology Hospitalist Name Role Phone Layo Bain MD Primary Care Provider [phone] Rubi Gilbert MD Primary Care Provider [phone] Encounter Details Date Type Department Care Team (Latest Contact Info) Description 07/16/2023 SCYNEXIS Message [facility] Interventional [place] [address] [phone] Ask.comhart, [facility] Provider Prior Authorization Social History Tobacco Use Types Packs/Day Years [...] on filedocumented in this encounter Care Teams Neurology Hospitalist Relationship Specialty Start Date End Date Layo Bain MD PCP - General 12/19/13 12/17/23 Rubi Gilbert MD [address] [place] [address] PCP - General FAMILY PRACTICE 01/03/24 documented as of this encounter
--- OUTSIDE RECORDS SUMMARY | 2024-12-03 12:26 | XMS_ITS | Encounter Summary ---
Author Organization [facility] Address [facility] [place] [address] Care Team Providers Care Radiologic Technologist Chief Name Role Phone Layo Bain MD Primary Care Provider [phone] Rubi Gilbert MD Primary Care Provider Encounter Details Date Type Department Care Team (Late st Contact Info) Description 05/14/[address] [facility] Interventional [place] [address] [phone] Sandra Mosqueda MD Three [facility] [address] [place] [address] SI Joint injections Social History Tobacco Use Types Packs/Day Years [...] on filedocumented in this encounter Care Teams Radiologic Technologist Chief Relationship Specialty Start Date End Date Layo Bain MD PCP - General 12/19/13 12/17/23 Rubi Gilbert MD [address] [place] [address] PCP - General FAMILY PRACTICE 01/03/24 documented as of this encounter
--- OUTSIDE RECORDS SUMMARY | 2024-12-03 12:26 | XMS_ITS | Encounter Summary ---
Author Organization [facility] Address [address] [place] [address] Care Team Providers Care Internet Security Specialist Name Role Phone Layo Bain MD Primary Care Provider [phone] Rubi Gilbert MD Primary Care Provider Encounter Details Date Type Department Care Team (Late st Contact Info) Description 05/09/2021 [employer] Message Enc [facility] Medical Group Family Medicine [facility] [address] [place] [address] Layo Bain MD [address] [place] [address] Possible Hand injury Social History Tobacco Use Types Packs/Day Years [...] Coronavirus/COVID-19? No / Unsure 05/10/2021 8:30 AM PHYSICIAN ANESTHESIOLOGIST documented as of this encounter Progress Notes * Jyoti Daly MA - 05/10/2021 7:07 AM CST Appointment made for today 05/10/21 4pm ICIAN ANESTHESIOLOGIST documented in this encounter Plan of Treatment Not on file documented as of this encounter Visit Diagnoses Not on filedocumented in this encounter Additional Health Concerns Infection Onset Date Last Indicated Resolved Time COVID-19 Rule Out 08/30/2021 08/30/2021 08/31/2021 2:39 PM CDT COVID-19 Confirmed 08/30/2021 08/30/2021 12:32 AM CDT documented as of this encounter Care Teams Internet Security Specialist Relationship Specialty Start Date End Date Layo Bain MD PCP - General 12/19/13 12/17/23 Rubi Gilbert MD [address] [place] [address] PCP - General FAMILY PRACTICE 01/03/24 documented as of this encounter
--- OUTSIDE RECORDS SUMMARY | 2024-12-03 12:26 | XMS_ITS | Encounter Summary ---
Author Organization [facility] Address [address] [place] [address] Care Team Providers Care Hoop Flaring Machine Operator Helper Name Role Phone Layo Bain MD Primary Care Provider [phone] Rubi Gilbert MD Primary Care Provider [phone] Encounter Details Date Type Department Care Team (Late st Contact Info) Description 06/11/2019 Cytomedix Message Enc [facility] Medical Group Family Medicine [facility] [address] [place] [address] [place] [address] [place] [address] RE: Question Social History Tobacco Use Types Packs/Day Years [...] documented as of this encounter Care Teams Hoop Flaring Machine Operator Helper Relationship Specialty Start Date End Date Layo Bain MD PCP - General 12/19/13 12/17/23 Rubi Gilbert MD [address] [place] [address] PCP - General FAMILY PRACTICE 01/03/24 documented as of this encounter
--- OUTSIDE RECORDS SUMMARY | 2024-12-03 12:26 | XMS_ITS | Encounter Summary ---
Author Organization [facility] Address [facility] [place] [address] Care Team Providers Care Rotary Helper Name Role Phone Layo Bain MD Primary Care Provider [phone] Rubi Gilbert MD Primary Care Provider [phone] Encounter Details Date Type Department Care Team (Late st Contact Info) Description 08/31/2023 Pluralsighthart Message Enc [facility] Interventional [place] [address] [id number] Sandra Mosqueda MD Three [facility] [address] [place] [address] Confirming Procedure Date/time Social History Tobacco Use Types Packs/Day Years [...] on filedocumented in this encounter Care Teams Rotary Helper Relationship Specialty Start Date End Date Sensintaffar, [place], MD PCP - General 12/19/13 12/17/23 Rubi Gilbert MD [address] [place] [address] PCP - General FAMILY PRACTICE 01/03/24 documented as of this encounter
--- OUTSIDE RECORDS SUMMARY | 2024-12-03 12:26 | XMS_ITS | Encounter Summary ---
Author Organization [facility] Address [address] [place] [address] Care Team Providers Care Filter Assembler Name Role Phone Layo Bain MD Primary Care Provider [phone] Rubi Gilbert MD Primary Care Provider Encounter Details Date Type Department Care Team (Late st Contact Info) Description 03/13/2023 Vertical Acuity Message Enc [facility] Medical Group Family Medicine [facility] [address] [place] [address] Layo Bain MD [address] [place] [address] MRI Social History Tobacco Use Types Packs/Day Years [...] on filedocumented in this encounter Care Teams Filter Assembler Relationship Specialty Start Date End Date Layo Bain MD PCP - General 12/19/13 12/17/23 Rubi Gilbert MD [address] [place] [address] PCP - General FAMILY PRACTICE 01/03/24 documented as of this encounter
--- OUTSIDE RECORDS SUMMARY | 2024-12-03 12:26 | XMS_ITS | Encounter Summary ---
Author Organization [facility] Address [address] [place] [address] Care Team Providers Care Plant Protection Officer Name Role Phone Layo Bain MD Primary Care Provider [phone] Rubi Gilbert MD Primary Care Provider [phone] Encounter Details Date Type Department Care Team (Late st Contact Info) Description 05/08/2022 MD On-Line Message Enc [facility] Medical Group Family Medicine [facility] [address] [place] [address] Layo Bian MD [address] [place] [address] Back Pain Update Social History [...] Coronavirus/COVID-19? No / Unsure 05/10/2022 4:04 PM FUR OPERATOR documented as of this encounter Functional Status * Calculated C-SSRS Risk Score (Lifetime/Recent) Answer Date of Assessment Author Status No Risk Indicated 05/10/2022 4:19 PM FUR OPERATOR Wilfrid Duran RN Active * [place] Suicide Severity Rating Scale (Screener/Recent Self-Report) Question Answer Date of Assessment Author Status 1. Wish to be (Past 1 Month) No 05/10/2022 4:19 PM FUR OPERATOR Shital Duran, RN Acti ve 2. Non-Specific Active Suicidal Thoughts (Past 1 Month) No 05/10/2022 4:19 PM FUR OPERATOR Shital Duran, RN Acti ve 6. Suicidal Behavior (Lifetime) No 05/10/2022 4:19 PM FUR OPERATOR Shital Duran, RN Acti ve documented as of this encounter Plan of Treatment Not on file documented as of this encounter Visit Diagnoses Not on filedocumented in this encounter Care Teams Plant Protection Officer Relationship Specialty Start Date End Date Layo Bain MD PCP - General 12/19/13 12/17/23 Rubi Gilbert MD [address] [place] [address] PCP - General FAMILY PRACTICE 01/03/24 documented as of this encounter
[2024-12-04 10:09] LABS: C-Reactive Protein, Cardiac 0.39 mg/L (0.00-3.00)
== END 2024-12-03 12:18 | disposition home or self-care (01) ==
LOC: ANHLAB 12:22
PROVIDERS: Visit Provider Internal Medicine Cardiovascular Disease
DX: I25.10 Atherosclerotic heart disease of native coronary artery without angina pectoris (principal)
CPT/HCPCS: 83695; 86141